=== PATIENT | male | born 1985 | race African-American/Black ===

== ENCOUNTER 2022-03-30 05:34 | Emergency (ER) | payer OTHER, SELFPAY ==
[2022-03-30] MEDS ORDERED: Ketorolac Tromethamine 30 MG/ML VIAL ONE (05:54)
[2022-03-30] MEDS ORDERED: HYDROcodone/Acetaminophen 10/325 mg Tablet ONE (05:54)
== END 2022-03-30 07:20 | disposition home or self-care (01) ==
LOC: ERS 05:34
DX: S83.91XA Sprain of unspecified site of right knee, initial encounter (principal); F17.210 Nicotine dependence, cigarettes, uncomplicated; W01.0XXA Fall on same level from slipping, tripping and stumbling without subsequent striking against object, initial encounter; Y99.0 Civilian activity done for income or pay
CPT/HCPCS: 96372; 99283; J1885

== ENCOUNTER 2022-04-06 19:15 | Emergency (ER) | payer SELFPAY | END 2022-04-06 19:52 | disposition home or self-care (01) | LOC: ERS 19:15 | DX: Z02.79 Encounter for issue of other medical certificate (principal); F17.210 Nicotine dependence, cigarettes, uncomplicated | CPT/HCPCS: 99281 ==